=== PATIENT | male | born 2000 | race Caucasian/White ===

== ENCOUNTER 2023-08-05 18:15 | Outpatient (CLI) | payer OTHER ==
--- NOTE | 2023-08-08 03:06 | XRAY Report ---
PROCEDURE: Ankle 3+V RT INDICATIONS: PAIN IN RIGHT ANKLE TECHNIQUE: 3 views of the ankle were acquired. COMPARISON: None. FINDINGS: Bones: No fractures or dislocations. Ankle mortise is normally aligned. No suspicious bony lesions . Soft tissues: No tibiotalar joint effusion. Achilles tendon appears normal. Soft tissue swelling o f the lateral ankle. IMPRESSION: No acute bony abnormality. Soft tissue swelling of the lateral ankle. If there is high clinical marie rn for internal derangement, consider cross-sectional imaging such as MRI. Reviewed by: Joanna Sher MD on 08/08/2023 3:04 AM PST Approved by: Joanna Sher MD on 08/08/2023 3:04 AM PST Station ID: [id number]
== END 2023-08-05 18:16 | disposition home or self-care (01) ==
LOC: DI 18:15
PROVIDERS: ATTEND Physician Assistant Medical
DX: M25.571 Pain in right ankle and joints of right foot (principal); R22.41 Localized swelling, mass and lump, right lower limb